=== PATIENT | male | born 1980 | race African-American/Black ===

== ENCOUNTER 2016-09-10 23:42 | Emergency (ER) | payer MEDICAID ==
[~2016-09-10] VITALS: Ht 172.7 cm; Wt 72.0 kg
[~2016-09-10 23:42] MED LIST: BENZ1TAB10 PO; HALO5 PO; LURA40 PO
[2016-09-11 00:09] VITALS: BP 130/82
== END 2016-09-11 00:38 | disposition home or self-care (01) ==
LOC: EMS 23:45
DX: T43.621A Poisoning by amphetamines, accidental (unintentional), initial encounter (principal); F20.9 Schizophrenia, unspecified; F15.90 Other stimulant use, unspecified, uncomplicated; Z02.79 Encounter for issue of other medical certificate; Y92.89 Other specified places as the place of occurrence of the external cause
CPT/HCPCS: 99283

== ENCOUNTER 2017-03-20 14:48 | Inpatient (IN) | payer MEDICAID ==
[2017-03-20] VITALS (7 sets, daily range): BP systolic 114–123; BP diastolic 61–74
[~2017-03-20 14:48] MED LIST changes: -BENZ1TAB10 PO; +ESCI10TA PO; -HALO5 PO; -LURA40 PO; +OLAN5TAB2 PO; +OLAN7.5T2 PO
[2017-03-20] MEDS ORDERED: HALOPERIDOL 5 MG TABLET PO PRN (17:00)
[2017-03-20] MEDS: OLANZapine 7.5 MG TABLET PO SCH (21:19)
[2017-03-21] VITALS (7 sets, daily range): BP systolic 106–122; BP diastolic 58–75
[2017-03-21] MEDS: ESCITALOPRAM OXALATE 10 MG TABLET PO SCH (08:48)
[2017-03-21] MEDS: OLANZapine 5 MG TABLET PO SCH (08:48)
[2017-03-21] MEDS ORDERED: IBUPROFEN 400 MG TABLET PO PRN (19:45)
[2017-03-21] MEDS ORDERED: ACETAMINOPHEN 325 MG TABLET PO PRN (19:45)
[2017-03-21] MEDS: OLANZapine 7.5 MG TABLET PO SCH (20:39)
[2017-03-21] MEDS: ZOLPIDEM TARTRATE 10 MG TABLET PO PRN (21:08)
[2017-03-22 04:55] VITALS: BP 116/62
[2017-03-22 04:59] VITALS: BP 116/62
[2017-03-22 08:00] VITALS: BP 101/64
[2017-03-22 08:14] VITALS: BP 107/64
[2017-03-22] MEDS: LORazepam 2 MG TABLET PO PRN (09:11)
[2017-03-22] MEDS: OLANZapine 5 MG TABLET PO SCH (09:11)
[2017-03-22] MEDS: ESCITALOPRAM OXALATE 10 MG TABLET PO SCH (09:11)
[2017-03-22 12:49] VITALS: BP 127/60
[2017-03-22 16:00] VITALS: BP 114/71
[2017-03-22] MEDS: OLANZapine 7.5 MG TABLET PO SCH (20:46)
[2017-03-23 03:15] VITALS: BP 128/77
[2017-03-23 03:17] VITALS: BP 128/77
[2017-03-23 08:00] VITALS: BP 117/74
[2017-03-23] MEDS: ESCITALOPRAM OXALATE 10 MG TABLET PO SCH (08:45)
[2017-03-23] MEDS: LORazepam 2 MG TABLET PO PRN ×2 (08:45→16:22)
[2017-03-23] MEDS: OLANZapine 5 MG TABLET PO SCH (08:45)
[2017-03-23 16:00] VITALS: BP 125/71
[2017-03-23] MEDS: OLANZapine 7.5 MG TABLET PO SCH (20:46)
[2017-03-23] MEDS: ZOLPIDEM TARTRATE 10 MG TABLET PO PRN (20:46)
[2017-03-24 07:03] VITALS: BP 122/75
[2017-03-24 07:04] VITALS: BP 122/75
[2017-03-24 08:11] VITALS: BP 125/74
[2017-03-24 08:12] VITALS: BP 100/61
[2017-03-24 08:14] VITALS: BP 125/74
[2017-03-24] MEDS: OLANZapine 5 MG TABLET PO SCH (08:53)
[2017-03-24] MEDS: ESCITALOPRAM OXALATE 10 MG TABLET PO SCH (08:53)
[2017-03-24] MEDS: LORazepam 2 MG TABLET PO PRN (08:53)
[2017-03-24] MEDS ORDERED: OLAN10TA22 PO (15:07)
== END 2017-03-24 16:40 | disposition home or self-care (01) | DRG 750 ==
LOC: B3A 16:56 → EDSTATUS 17:10
PROVIDERS: ADMIT Psychiatry & Neurology Psychiatry; ATTEND Psychiatry & Neurology Child & Adolescent Psychiatry
DX: F25.1 Schizoaffective disorder, depressive type (principal); R45.851 Suicidal ideations; F10.10 Alcohol abuse, uncomplicated; F17.200 Nicotine dependence, unspecified, uncomplicated; F41.9 Anxiety disorder, unspecified; Z71.41 Alcohol abuse counseling and surveillance of alcoholic; Z71.6 Tobacco abuse counseling; F19.10 Other psychoactive substance abuse, uncomplicated; Z71.51 Drug abuse counseling and surveillance of drug abuser

== ENCOUNTER 2017-05-04 16:19 | Inpatient (IN) | payer MEDICAID ==
[~2017-05-04] VITALS: Ht 172.7 cm; Wt 78.0 kg
[~2017-05-04 16:19] MED LIST changes: +OLAN10TA22 PO; -OLAN5TAB2 PO
[2017-05-04] MEDS ORDERED: INFLUENZA VIRUS VACCINE QVS 2017-18 (3YR+)/PF 60 MCG/0.5 ML SYRINGE IM ONE (17:00)
[2017-05-04] MEDS: LORazepam 2 MG TABLET PO PRN ×2 (17:20→21:21)
[2017-05-04] MEDS: HALOPERIDOL 5 MG TABLET PO PRN (17:20)
[2017-05-04 17:23] VITALS: BP 119/80
[2017-05-04 17:24] VITALS: BP 148/78
[2017-05-04] MEDS: OLANZapine 7.5 MG TABLET PO SCH (21:05)
[2017-05-04] MEDS: ZOLPIDEM TARTRATE 10 MG TABLET PO PRN (21:05)
[2017-05-05 06:30] VITALS: BP 128/75
[2017-05-05 08:05] VITALS: BP 106/80
[2017-05-05] MEDS: ESCITALOPRAM OXALATE 10 MG TABLET PO SCH (08:42)
[2017-05-05] MEDS: LORazepam 2 MG TABLET PO PRN ×2 (08:44→16:45)
[2017-05-05 16:00] VITALS: BP 114/70
[2017-05-05] MEDS: HALOPERIDOL 5 MG TABLET PO PRN (16:45)
[2017-05-05] MEDS: OLANZapine 7.5 MG TABLET PO SCH (20:23)
[2017-05-06 05:58] VITALS: BP 118/78
[2017-05-06 08:06] VITALS: BP 103/61
[2017-05-06] MEDS: LORazepam 2 MG TABLET PO PRN ×2 (08:25→16:38)
[2017-05-06] MEDS: ESCITALOPRAM OXALATE 10 MG TABLET PO SCH (08:25)
[2017-05-06 16:28] VITALS: BP 110/67
[2017-05-06] MEDS: HALOPERIDOL 5 MG TABLET PO PRN (16:38)
[2017-05-06] MEDS: OLANZapine 7.5 MG TABLET PO SCH (20:23)
[2017-05-07 06:16] VITALS: BP 118/72
[2017-05-07 08:27] VITALS: BP 122/78
[2017-05-07] MEDS: ESCITALOPRAM OXALATE 10 MG TABLET PO SCH (09:03)
[2017-05-07 16:00] VITALS: BP 112/66
[2017-05-07] MEDS: LORazepam 2 MG TABLET PO PRN (17:24)
[2017-05-07] MEDS: OLANZapine 7.5 MG TABLET PO SCH (20:03)
[2017-05-07] MEDS: ZOLPIDEM TARTRATE 10 MG TABLET PO PRN (21:02)
[2017-05-08 01:23] VITALS: BP 119/66
[2017-05-08 08:07] VITALS: BP 108/63
[2017-05-08] MEDS: ESCITALOPRAM OXALATE 10 MG TABLET PO SCH (08:31)
[2017-05-08] MEDS: HALOPERIDOL 5 MG TABLET PO PRN ×2 (08:31→16:24)
[2017-05-08] MEDS: LORazepam 2 MG TABLET PO PRN ×2 (08:31→16:24)
[2017-05-08 16:00] VITALS: BP 120/66
[2017-05-08] MEDS: OLANZapine 7.5 MG TABLET PO SCH (20:21)
[2017-05-09 01:58] VITALS: BP 114/67
[2017-05-09 08:13] VITALS: BP 114/76
[2017-05-09] MEDS: ESCITALOPRAM OXALATE 10 MG TABLET PO SCH (08:16)
[2017-05-09] MEDS: LORazepam 2 MG TABLET PO PRN ×2 (14:19→20:38)
[2017-05-09 16:00] VITALS: BP 125/66
[2017-05-09] MEDS: HALOPERIDOL 5 MG TABLET PO PRN (16:38)
[2017-05-09] MEDS: OLANZapine 7.5 MG TABLET PO SCH (20:38)
[2017-05-10 03:59] VITALS: BP 118/67
[2017-05-10] MEDS: ESCITALOPRAM OXALATE 10 MG TABLET PO SCH (08:05)
[2017-05-10 08:30] VITALS: BP 126/74
[2017-05-10 16:00] VITALS: BP 130/75
[2017-05-10] MEDS: LORazepam 2 MG TABLET PO PRN (16:11)
[2017-05-10] MEDS: HALOPERIDOL 5 MG TABLET PO PRN (16:12)
[2017-05-10] MEDS: OLANZapine 7.5 MG TABLET PO SCH (20:27)
[2017-05-10] MEDS: ZOLPIDEM TARTRATE 10 MG TABLET PO PRN (20:27)
[2017-05-11 03:37] VITALS: BP 126/69
[2017-05-11 08:28] VITALS: BP 119/64
[2017-05-11] MEDS: ESCITALOPRAM OXALATE 10 MG TABLET PO SCH (08:50)
[2017-05-11] MEDS: LORazepam 2 MG TABLET PO PRN (08:50)
[2017-05-11 16:11] VITALS: BP 140/72
== END 2017-05-11 17:40 | disposition home or self-care (01) | DRG 750 ==
LOC: B3A 16:56
PROVIDERS: ADMIT Psychiatry & Neurology Psychiatry; ATTEND Psychiatry & Neurology Psychiatry
DX: F25.0 Schizoaffective disorder, bipolar type (principal); F15.20 Other stimulant dependence, uncomplicated; F41.9 Anxiety disorder, unspecified; F17.200 Nicotine dependence, unspecified, uncomplicated; F10.10 Alcohol abuse, uncomplicated; Z81.8 Family history of other mental and behavioral disorders; Z91.5 Personal history of self-harm
CPT/HCPCS: 87081

== ENCOUNTER 2017-07-17 14:15 | Inpatient (IN) | payer MEDICAID ==
[~2017-07-17] VITALS: Ht 172.7 cm; Wt 75.3 kg
[~2017-07-17 14:15] MED LIST changes: -OLAN10TA22 PO
[2017-07-17 15:40] VITALS: BP 112/54
[2017-07-17 16:30] VITALS: BP 115/68
[2017-07-17] MEDS: LORazepam 2 MG TABLET PO PRN (21:22)
[2017-07-17] MEDS: ZOLPIDEM TARTRATE 10 MG TABLET PO PRN (21:22)
[2017-07-18 05:58] VITALS: BP 117/70
[2017-07-18 08:15] VITALS: BP 120/72
[2017-07-18 08:27] LABS: APPEARANCE,URINE TURBID (CLEAR); BILIRUBIN,URINE NEGATIVE (NEGATIVE); GLUCOSE, URINE (UA) NEGATIVE (NEGATIVE); KETONES,URINE NEGATIVE (NEGATIVE); LEUKOCYTE ESTERASE ,URINE NEGATIVE (NEGATIVE); NITRATE,URINE NEGATIVE (NEGATIVE); OCCULT BLOOD,URINE NEGATIVE (NEGATIVE); PROTEIN,URINE TRACE (NEGATIVE); UROBILINOGEN,URINE 0.2 mg/dL (<=1.0)
[2017-07-18] MEDS: LORazepam 2 MG TABLET PO PRN ×2 (08:28→16:11)
[2017-07-18 08:59] LABS: AMORPHOUS SEDIMENT,UR Many /LPF (None Seen); BACTERIA,URINE None Seen /HPF (None Seen); RBC,URINE None Seen /HPF (0-2); SQUAMOUS EPITHELIAL CELL,UR Few /LPF (None Seen); WBC,URINE None Seen /HPF (0-5)
[2017-07-18] MEDS: HALOPERIDOL 5 MG TABLET PO PRN ×2 (09:40→16:11)
[2017-07-18 16:00] VITALS: BP 114/71
[2017-07-18] MEDS: ZOLPIDEM TARTRATE 10 MG TABLET PO PRN (21:09)
[2017-07-19 01:18] VITALS: BP 122/66
[2017-07-19 08:07] VITALS: BP 128/76
[2017-07-19] MEDS: LORazepam 2 MG TABLET PO PRN ×2 (10:55→16:28)
[2017-07-19 16:07] VITALS: BP 113/69
[2017-07-19] MEDS: HALOPERIDOL 5 MG TABLET PO PRN (16:28)
[2017-07-19] MEDS: ZOLPIDEM TARTRATE 10 MG TABLET PO PRN (20:53)
[2017-07-19] MEDS: OLANZapine 7.5 MG TABLET PO SCH (20:53)
[2017-07-20 06:28] VITALS: BP 104/58
[2017-07-20] MEDS: LORazepam 2 MG TABLET PO PRN ×2 (08:44→17:11)
[2017-07-20 09:48] VITALS: BP 132/79
[2017-07-20 16:00] VITALS: BP 119/68
[2017-07-20] MEDS: HALOPERIDOL 5 MG TABLET PO PRN (17:11)
[2017-07-20] MEDS: ZOLPIDEM TARTRATE 10 MG TABLET PO PRN (20:12)
[2017-07-20] MEDS: OLANZapine 7.5 MG TABLET PO SCH (20:12)
[2017-07-21 06:54] VITALS: BP 101/63
[2017-07-21 08:12] VITALS: BP 128/74
[2017-07-21] MEDS: LORazepam 2 MG TABLET PO PRN ×2 (16:25→21:52)
[2017-07-21] MEDS: HALOPERIDOL 5 MG TABLET PO PRN (16:25)
[2017-07-21 16:30] VITALS: BP 127/82
[2017-07-21] MEDS: OLANZapine 7.5 MG TABLET PO SCH (20:13)
[2017-07-21] MEDS: ZOLPIDEM TARTRATE 10 MG TABLET PO PRN (21:52)
[2017-07-22 06:03] VITALS: BP 128/75
[2017-07-22] MEDS: LORazepam 2 MG TABLET PO PRN ×3 (06:50→16:26)
[2017-07-22 08:12] VITALS: BP 124/73
[2017-07-22] MEDS: HALOPERIDOL 5 MG TABLET PO PRN ×2 (10:50→16:26)
[2017-07-22 16:00] VITALS: BP 118/67
[2017-07-22] MEDS: OLANZapine 7.5 MG TABLET PO SCH (20:52)
[2017-07-23 05:23] VITALS: BP 134/69
[2017-07-23 08:31] VITALS: BP 128/72
[2017-07-23] MEDS: HALOPERIDOL 5 MG TABLET PO PRN ×2 (09:37→16:43)
[2017-07-23] MEDS: LORazepam 2 MG TABLET PO PRN ×2 (09:37→16:44)
[2017-07-23 16:00] VITALS: BP 121/68
[2017-07-23] MEDS: ZOLPIDEM TARTRATE 10 MG TABLET PO PRN (20:33)
[2017-07-23] MEDS: OLANZapine 7.5 MG TABLET PO SCH (20:33)
[2017-07-24 06:53] VITALS: BP 125/78
[2017-07-24 10:08] VITALS: BP 130/79
[2017-07-24] MEDS: HALOPERIDOL 5 MG TABLET PO PRN (16:02)
[2017-07-24] MEDS: LORazepam 2 MG TABLET PO PRN (16:02)
[2017-07-24 16:30] VITALS: BP 118/66
[2017-07-24] MEDS: ZOLPIDEM TARTRATE 10 MG TABLET PO PRN (20:23)
[2017-07-24] MEDS: OLANZapine 7.5 MG TABLET PO SCH (20:23)
[2017-07-25 05:27] VITALS: BP 120/75
[2017-07-25 08:00] VITALS: BP 108/53
[2017-07-25 10:17] VITALS: BP 117/77
[2017-07-25] MEDS: LORazepam 2 MG TABLET PO PRN ×2 (10:17→16:42)
[2017-07-25] MEDS: HALOPERIDOL 5 MG TABLET PO PRN (16:42)
[2017-07-25 16:49] VITALS: BP 124/68
[2017-07-25] MEDS: ZOLPIDEM TARTRATE 10 MG TABLET PO PRN (20:31)
[2017-07-25] MEDS: OLANZapine 7.5 MG TABLET PO SCH (20:31)
[2017-07-26 05:32] VITALS: BP 122/72
[2017-07-26 08:10] VITALS: BP 129/83
[2017-07-26] MEDS: LORazepam 2 MG TABLET PO PRN ×2 (08:30→17:06)
[2017-07-26 16:35] VITALS: BP 130/68
[2017-07-26] MEDS: HALOPERIDOL 5 MG TABLET PO PRN (17:05)
[2017-07-26] MEDS: ZOLPIDEM TARTRATE 10 MG TABLET PO PRN (20:46)
[2017-07-26] MEDS: OLANZapine 7.5 MG TABLET PO SCH (20:46)
[2017-07-27 00:55] VITALS: BP 122/68
[2017-07-27 08:17] VITALS: BP 119/64
[2017-07-27] MEDS: LORazepam 2 MG TABLET PO PRN ×2 (08:30→16:24)
[2017-07-27] MEDS: HALOPERIDOL 5 MG TABLET PO PRN (16:24)
[2017-07-27 17:33] VITALS: BP 131/69
[2017-07-27] MEDS: OLANZapine 7.5 MG TABLET PO SCH (20:36)
[2017-07-28 01:09] VITALS: BP 137/70
== END 2017-07-28 07:38 | disposition home or self-care (01) | DRG 750 ==
LOC: B3A 16:11
PROVIDERS: ADMIT Psychiatry & Neurology Psychiatry; ATTEND Psychiatry & Neurology Psychiatry
DX: F25.9 Schizoaffective disorder, unspecified (principal); R45.851 Suicidal ideations; F10.10 Alcohol abuse, uncomplicated; F17.200 Nicotine dependence, unspecified, uncomplicated; F19.10 Other psychoactive substance abuse, uncomplicated; Z71.6 Tobacco abuse counseling; Z71.41 Alcohol abuse counseling and surveillance of alcoholic

== ENCOUNTER 2017-09-30 12:07 | Inpatient (IN) | payer MEDICAID ==
[~2017-09-30] VITALS: Ht 172.7 cm; Wt 73.9 kg
[~2017-09-30 12:07] MED LIST changes: -ESCI10TA PO
[2017-09-30 12:16] VITALS: BP 123/59
[2017-09-30] MEDS ORDERED: LORazepam 2 MG TABLET PO PRN (12:30)
[2017-09-30] MEDS ORDERED: INFLUENZA VIRUS VACCINE QVS 2017-18 (3YR+)/PF 60 MCG/0.5 ML SYRINGE IM ONE (12:30)
[2017-09-30] MEDS ORDERED: HALOPERIDOL 5 MG TABLET PO PRN ×2 (12:30→13:15)
[2017-09-30] MEDS ORDERED: ZOLPIDEM TARTRATE 10 MG TABLET PO PRN ×2 (12:30→13:15)
[2017-09-30 13:00] VITALS: BP 124/84
[2017-09-30 16:02] VITALS: BP 110/67
[2017-09-30] MEDS ORDERED: OLANZapine 10 MG TABLET PO SCH (21:00)
[2017-09-30] MEDS: OLANZapine 7.5 MG TABLET PO SCH (21:04)
[2017-09-30] MEDS: LORazepam 2 MG TABLET PO PRN (21:04)
[2017-10-01 06:31] VITALS: BP 114/67
[2017-10-01 08:02] VITALS: BP 112/68
[2017-10-01] MEDS: LORazepam 2 MG TABLET PO PRN ×2 (08:51→17:00)
[2017-10-01] MEDS: ESCITALOPRAM OXALATE 20 MG TABLET PO SCH (08:51)
[2017-10-01] MEDS ORDERED: IBUPROFEN 400 MG TABLET PO PRN (10:00)
[2017-10-01] MEDS ORDERED: ACETAMINOPHEN 325 MG TABLET PO PRN (10:00)
[2017-10-01 16:01] VITALS: BP 129/66
[2017-10-01] MEDS: OLANZapine 7.5 MG TABLET PO SCH (20:18)
[2017-10-02 05:44] VITALS: BP 118/67
[2017-10-02 08:00] VITALS: BP 110/64
[2017-10-02] MEDS: ESCITALOPRAM OXALATE 20 MG TABLET PO SCH (09:38)
[2017-10-02] MEDS: OLANZapine 7.5 MG TABLET PO SCH (20:26)
[2017-10-03] MEDS: ESCITALOPRAM OXALATE 20 MG TABLET PO SCH (09:40)
[2017-10-03 16:14] VITALS: BP 114/70
[2017-10-03] MEDS: OLANZapine 7.5 MG TABLET PO SCH (20:29)
[2017-10-04 04:00] VITALS: BP 111/80
[2017-10-04 08:03] VITALS: BP 114/76
[2017-10-04] MEDS: ESCITALOPRAM OXALATE 20 MG TABLET PO SCH (08:12)
[2017-10-04 16:03] VITALS: BP 111/66
[2017-10-04] MEDS: LORazepam 2 MG TABLET PO PRN (16:41)
[2017-10-04] MEDS: OLANZapine 7.5 MG TABLET PO SCH (20:53)
[2017-10-05 00:36] VITALS: BP 134/86
[2017-10-05] MEDS: LORazepam 2 MG TABLET PO PRN ×2 (09:03→17:05)
[2017-10-05] MEDS: ESCITALOPRAM OXALATE 20 MG TABLET PO SCH (09:03)
[2017-10-05 16:18] VITALS: BP 116/68
[2017-10-05] MEDS: OLANZapine 7.5 MG TABLET PO SCH (20:23)
[2017-10-06 02:26] VITALS: BP 120/69
[2017-10-06] MEDS: ESCITALOPRAM OXALATE 20 MG TABLET PO SCH (08:02)
[2017-10-06 09:26] VITALS: BP 119/67
[2017-10-06] MEDS ORDERED: ESCI20TA PO (13:12)
== END 2017-10-06 16:31 | disposition home or self-care (01) | DRG 750 ==
LOC: B3A 12:25
PROVIDERS: ADMIT Psychiatry & Neurology Psychiatry; ATTEND Psychiatry & Neurology Psychiatry
PROC: 3E0234Z Introduction of Serum, Toxoid and Vaccine into Muscle, Percutaneous Approach (ICD-10-PCS; principal; 2017-09-30)
DX: F25.0 Schizoaffective disorder, bipolar type (principal); R45.851 Suicidal ideations; F41.9 Anxiety disorder, unspecified; F10.10 Alcohol abuse, uncomplicated; F19.20 Other psychoactive substance dependence, uncomplicated; F17.200 Nicotine dependence, unspecified, uncomplicated; Z81.8 Family history of other mental and behavioral disorders; Z91.5 Personal history of self-harm; Z23 Encounter for immunization; Z71.41 Alcohol abuse counseling and surveillance of alcoholic; Z71.6 Tobacco abuse counseling; Z71.51 Drug abuse counseling and surveillance of drug abuser
CPT/HCPCS: 90471

== ENCOUNTER 2018-09-13 17:05 | Inpatient (IN) | payer MEDICAID ==
[~2018-09-13] VITALS: Ht 172.7 cm; Wt 105.4 kg
[~2018-09-13 17:05] MED LIST changes: +ESCI20TA PO
[2018-09-13 19:28] LABS: BASOPHILS % (AUTO) 0.5 % (0.0-2.0); EOSINOPHILS % (AUTO) 0.2 % (1.0-6.0); HEMATOCRIT 47.2 % (41-53); HEMOGLOBIN 16.1 g/dL (13.5-17.5); LYMPHOCYTES # (AUTO) 1.4 K/uL (1.0-4.8); LYMPHOCYTES % (AUTO) 18.7 % (22.0-44.0); MEAN CORPUSCULAR VOLUME 85 fL (80-100); MONOCYTES # (AUTO) 0.7 K/uL (0.1-1.0); MONOCYTES % (AUTO) 8.9 % (2.0-9.0); NEUTROPHILS # (AUTO) 5.4 K/uL (1.8-7.7); NEUTROPHILS % (AUTO) 71.7 % (40.0-70.0); PLATELET COUNT (AUTO) 389 K/uL (150-450); RED BLOOD CELL COUNT(AUTO) 5.54 MIL/uL (4.50-5.90); RED CELL DISTRIBUTION WIDTH 14.2 % (11.5-14.5)
[2018-09-13] MEDS ORDERED: LORazepam 2 MG/ML VIAL IM ONE (19:30)
[2018-09-13] MEDS ORDERED: HALOPERIDOL LACTATE 5 MG/ML VIAL IM ONE (19:30)
[2018-09-13 19:32] LABS: ANION GAP 13 mmol/L (8-16); CALCIUM, TOTAL 9.4 mg/dL (8.8-10.5); CARBON DIOXIDE 26 mmol/L (22-29); CHLORIDE 100 mmol/L (98-107); CREATININE 1.26 mg/dL (0.60-1.30); GLOMERULAR FILTR. RATE CALC > 60 mL/min (>60); GLUCOSE,RANDOM 88 mg/dL (70-110); POTASSIUM 3.6 mmol/L (3.5-5.1); SODIUM SERUM 139 mmol/L (136-145); UREA NITROGEN, BLOOD 22 mg/dL (7-18)
[2018-09-13 19:40] LABS: ALANINE AMINOTRANSFERASE 89 U/L (12-78); ALKALINE PHOSPHATASE 88 U/L (46-116); ASPARTATE AMINOTRANSFERASE 96 U/L (15-37); BILIRUBIN,TOTAL 0.7 mg/dL (0.1-1.0); TOTAL PROTEIN, SERUM 8.3 g/dL (6.4-8.2)
[2018-09-13] MEDS ORDERED: OLANZapine 5 MG TABLET PO ONE (19:45)
[2018-09-13] MEDS ORDERED: LORazepam 1 MG TABLET PO ONE (19:45)
[2018-09-13] MEDS ORDERED: DiphenhydrAMINE HCL 25 MG CAPSULE PO ONE (19:45)
[2018-09-13 20:04] LABS: APPEARANCE,URINE CLOUDY (CLEAR); BILIRUBIN,URINE PRELIM. POSITIVE (NEGATIVE); GLUCOSE, URINE (UA) NEGATIVE (NEGATIVE); KETONES,URINE >=80 mg/dL (NEGATIVE); LEUKOCYTE ESTERASE ,URINE SMALL (NEGATIVE); NITRATE,URINE NEGATIVE (NEGATIVE); OCCULT BLOOD,URINE NEGATIVE (NEGATIVE); PH,URINE 5.5 (5.0-8.0); PROTEIN,URINE POS 1+ (NEGATIVE)
[2018-09-13 20:10] LABS: BACTERIA,URINE Few /HPF (None Seen); SQUAMOUS EPITHELIAL CELL,UR Moderate /LPF (None Seen)
[2018-09-13 20:17] LABS: AMPHET/METH SCREEN,URINE POSITIVE (NEGATIVE); BARBITURATE SCREEN, URINE NEGATIVE (NEGATIVE); BENZODIAZEPINES SCREEN,URINE NEGATIVE (NEGATIVE); CANNABINOID SCREEN,URINE POSITIVE (NEGATIVE); COCAINE SCREEN,URINE NEGATIVE (NEGATIVE); METHADONE SCREEN, URINE NEGATIVE (NEGATIVE); OPIATE SCREEN,URINE NEGATIVE (NEGATIVE)
[2018-09-13 20:19] LABS: PHENCYCLIDINE SCREEN,URINE NEGATIVE (NEGATIVE)
[2018-09-13] MEDS ORDERED: LORazepam 2 MG TABLET PO PRN (20:30)
[2018-09-13] MEDS ORDERED: OLANZapine 5 MG RAPDIS TABLET PO PRN (20:30)
[2018-09-13] MEDS ORDERED: ZOLPIDEM TARTRATE 10 MG TABLET PO PRN (20:30)
[2018-09-14 01:41] VITALS: BP 122/78
[2018-09-14] MEDS ORDERED: DOCUSATE SODIUM 100 MG CAPSULE PO PRN (06:45)
[2018-09-14] MEDS ORDERED: PETROLATUM,WHITE 71 GM JELLY TP PRN (06:45)
[2018-09-14] MEDS ORDERED: MAGNESIUM HYDROXIDE SUSPENSION 30 ML UDCUP PO PRN (06:45)
[2018-09-14] MEDS ORDERED: ONDANSETRON HCL 4 MG TABLET PO PRN (06:45)
[2018-09-14] MEDS ORDERED: NICOTINE 14 MG/24 HOUR PATCH TD PRN (06:45)
[2018-09-14] MEDS ORDERED: ALBUTEROL SULFATE HFA 90 MCG/PUFF 8 GM INHALER IH PRN (06:45)
[2018-09-14] MEDS ORDERED: LOPERAMIDE HCL 2 MG CAPSULE PO PRN (06:45)
[2018-09-14] MEDS ORDERED: MAG HYDROX/AL HYDROX/SIMETH ES 30 ML SUSPENSION UDCUP PO PRN (06:45)
[2018-09-14] MEDS ORDERED: GuaiFENesin/D-METHORPHAN [SUGAR-FREE] 200-20MG/10 ML SYRUP UDCUP PO PRN (06:45)
[2018-09-14] MEDS ORDERED: CloNIDine HCL 0.1 MG TABLET PO PRN (06:45)
[2018-09-14] MEDS ORDERED: IBUPROFEN 400 MG TABLET PO PRN (06:45)
[2018-09-14] MEDS ORDERED: ACETAMINOPHEN 325 MG TABLET PO PRN (06:45)
[2018-09-14 08:29] VITALS: BP 106/68
[2018-09-14 20:41] VITALS: BP 116/74
[2018-09-14] MEDS: OLANZapine 7.5 MG TABLET PO SCH (21:26)
[2018-09-15 08:24] VITALS: BP 106/55
[2018-09-15 18:43] VITALS: BP 111/62
[2018-09-15] MEDS: OLANZapine 7.5 MG TABLET PO SCH (20:29)
[2018-09-16] MEDS: CEPHALEXIN MONOHYDRATE 500 MG CAPSULE PO SCH ×3 (00:13→17:19)
[2018-09-16 16:00] VITALS: BP 121/59
[2018-09-16] MEDS: OLANZapine 7.5 MG TABLET PO SCH (21:45)
[2018-09-17] MEDS: CEPHALEXIN MONOHYDRATE 500 MG CAPSULE PO SCH ×3 (00:15→16:26)
[2018-09-17 08:10] VITALS: BP 107/74
[2018-09-17 17:27] VITALS: BP 130/88
[2018-09-17] MEDS: OLANZapine 7.5 MG TABLET PO SCH (20:14)
[2018-09-18 08:05] VITALS: BP 124/76
[2018-09-18] MEDS: CEPHALEXIN MONOHYDRATE 500 MG CAPSULE PO SCH ×3 (09:43→16:08)
[2018-09-18 16:29] VITALS: BP 137/75
[2018-09-18] MEDS: OLANZapine 7.5 MG TABLET PO SCH (20:56)
[2018-09-19] MEDS: CEPHALEXIN MONOHYDRATE 500 MG CAPSULE PO SCH ×3 (01:02→16:20)
[2018-09-19 08:00] VITALS: BP 131/64
[2018-09-19] MEDS ORDERED: CEPH500 PO (13:47)
== END 2018-09-19 16:45 | disposition home or self-care (01) | DRG 750 ==
LOC: EMS 17:06 → 3EC 09-14 00:01
DX: F25.1 Schizoaffective disorder, depressive type (principal); R45.851 Suicidal ideations; F15.20 Other stimulant dependence, uncomplicated; F10.10 Alcohol abuse, uncomplicated; F12.20 Cannabis dependence, uncomplicated; F17.210 Nicotine dependence, cigarettes, uncomplicated; R74.0 Nonspecific elevation of levels of transaminase and lactic acid dehydrogenase [LDH]; N39.0 Urinary tract infection, site not specified; F32.9 Major depressive disorder, single episode, unspecified; Z71.41 Alcohol abuse counseling and surveillance of alcoholic; Z71.51 Drug abuse counseling and surveillance of drug abuser; Z79.899 Other long term (current) drug therapy
CPT/HCPCS: 87086; G0480

== ENCOUNTER 2018-11-02 15:35 | Inpatient (IN) | payer MEDICAID ==
[~2018-11-02] VITALS: Ht 172.7 cm; Wt 95.9 kg
[~2018-11-02 15:35] MED LIST changes: +CEPH500 PO; -ESCI20TA PO
[2018-11-02] MEDS ORDERED: HALOPERIDOL 5 MG TABLET PO PRN (17:45)
[2018-11-02] MEDS ORDERED: ZOLPIDEM TARTRATE 10 MG TABLET PO PRN (17:45)
[2018-11-02 18:04] VITALS: BP 144/77
[2018-11-02 18:56] VITALS: BP 115/67
[2018-11-02] MEDS ORDERED: CloNIDine HCL 0.1 MG TABLET PO PRN (23:00)
[2018-11-02] MEDS ORDERED: PETROLATUM,WHITE 28 GM JELLY TP PRN (23:00)
[2018-11-02] MEDS ORDERED: BENZOCAINE/MENTHOL LOZENGE MM PRN (23:00)
[2018-11-02] MEDS ORDERED: IBUPROFEN 600 MG TABLET PO PRN (23:00)
[2018-11-02] MEDS ORDERED: ACETAMINOPHEN 325 MG TABLET PO PRN (23:00)
[2018-11-02] MEDS ORDERED: LOPERAMIDE HCL 2 MG CAPSULE PO PRN (23:00)
[2018-11-02] MEDS ORDERED: MAGNESIUM HYDROXIDE SUSPENSION 30 ML UDCUP PO PRN (23:00)
[2018-11-02] MEDS ORDERED: ALBUTEROL SULFATE HFA 90 MCG/PUFF 8 GM INHALER IH PRN (23:00)
[2018-11-02] MEDS ORDERED: ONDANSETRON HCL 4 MG TABLET PO PRN (23:00)
[2018-11-02] MEDS ORDERED: BACITRACIN 28.4 GM OINTMENT TP PRN (23:00)
[2018-11-02] MEDS ORDERED: MAG HYDROX/AL HYDROX/SIMETH ES 30 ML SUSPENSION UDCUP PO PRN (23:00)
[2018-11-03 08:13] VITALS: BP 101/59
[2018-11-03] MEDS: OMEPRAZOLE 20 MG CAPSULE PO SCH (09:59)
[2018-11-03] MEDS: DOCUSATE SODIUM 100 MG CAPSULE PO SCH (09:59)
[2018-11-03 16:03] VITALS: BP 101/60
[2018-11-03] MEDS: LORazepam 2 MG TABLET PO PRN (17:47)
[2018-11-03] MEDS: OLANZapine 7.5 MG TABLET PO SCH (21:44)
[2018-11-04 07:43] LABS: APPEARANCE,URINE TURBID (CLEAR); BILIRUBIN,URINE NEGATIVE (NEGATIVE); GLUCOSE, URINE (UA) NEGATIVE (NEGATIVE); KETONES,URINE NEGATIVE (NEGATIVE); LEUKOCYTE ESTERASE ,URINE LARGE (NEGATIVE); NITRATE,URINE NEGATIVE (NEGATIVE); OCCULT BLOOD,URINE TRACE (NEGATIVE); PROTEIN,URINE POS 1+ (NEGATIVE)
[2018-11-04 07:44] LABS: AMPHET/METH SCREEN,URINE POSITIVE (NEGATIVE); BARBITURATE SCREEN, URINE NEGATIVE (NEGATIVE); BENZODIAZEPINES SCREEN,URINE NEGATIVE (NEGATIVE); CANNABINOID SCREEN,URINE POSITIVE (NEGATIVE); COCAINE SCREEN,URINE NEGATIVE (NEGATIVE); METHADONE SCREEN, URINE NEGATIVE (NEGATIVE); OPIATE SCREEN,URINE NEGATIVE (NEGATIVE); PHENCYCLIDINE SCREEN,URINE NEGATIVE (NEGATIVE)
[2018-11-04] MEDS: DOCUSATE SODIUM 100 MG CAPSULE PO SCH (08:08)
[2018-11-04] MEDS: OMEPRAZOLE 20 MG CAPSULE PO SCH (08:08)
[2018-11-04 09:16] LABS: BACTERIA,URINE Few /HPF (None Seen); RENAL EPITHELIAL CELLS,URINE Rare /LPF (None Seen); SQUAMOUS EPITHELIAL CELL,UR Moderate /LPF (None Seen); WBC,URINE 26-50 /HPF (0-5)
[2018-11-04 16:16] VITALS: BP 100/59
[2018-11-04] MEDS: OLANZapine 7.5 MG TABLET PO SCH (20:19)
[2018-11-05 06:10] VITALS: BP 112/65
[2018-11-05] MEDS: OMEPRAZOLE 20 MG CAPSULE PO SCH (08:46)
[2018-11-05] MEDS: DOCUSATE SODIUM 100 MG CAPSULE PO SCH (08:46)
[2018-11-05 16:22] VITALS: BP 110/52
[2018-11-05] MEDS: OLANZapine 7.5 MG TABLET PO SCH (20:52)
[2018-11-06 03:59] VITALS: BP 114/64
[2018-11-06] MEDS: OMEPRAZOLE 20 MG CAPSULE PO SCH (09:42)
[2018-11-06] MEDS: DOCUSATE SODIUM 100 MG CAPSULE PO SCH (09:42)
[2018-11-06 17:13] VITALS: BP 137/74
[2018-11-06] MEDS: OLANZapine 7.5 MG TABLET PO SCH (20:37)
[2018-11-07 04:29] VITALS: BP 128/82
[2018-11-07 08:34] VITALS: BP 135/78
[2018-11-07] MEDS: DOCUSATE SODIUM 100 MG CAPSULE PO SCH (08:36)
[2018-11-07] MEDS: OMEPRAZOLE 20 MG CAPSULE PO SCH (08:36)
[2018-11-07] MEDS: CIPROFLOXACIN HCL 250 MG TABLET PO SCH ×2 (08:39→15:44)
[2018-11-07] MEDS: LORazepam 2 MG TABLET PO PRN (15:44)
[2018-11-07 16:00] VITALS: BP 117/74
[2018-11-07] MEDS: OLANZapine 7.5 MG TABLET PO SCH (20:18)
[2018-11-08 01:09] VITALS: BP 122/70
[2018-11-08 08:14] VITALS: BP 112/73
[2018-11-08] MEDS: DOCUSATE SODIUM 100 MG CAPSULE PO SCH (08:16)
[2018-11-08] MEDS: OMEPRAZOLE 20 MG CAPSULE PO SCH (08:16)
[2018-11-08] MEDS: CIPROFLOXACIN HCL 250 MG TABLET PO SCH ×2 (08:16→16:03)
[2018-11-08] MEDS: LORazepam 2 MG TABLET PO PRN ×2 (11:40→16:03)
[2018-11-08 16:15] VITALS: BP 126/71
[2018-11-08] MEDS: OLANZapine 7.5 MG TABLET PO SCH (20:02)
[2018-11-09 06:46] VITALS: BP 124/72
[2018-11-09 07:56] VITALS: BP 102/65
[2018-11-09] MEDS: DOCUSATE SODIUM 100 MG CAPSULE PO SCH (08:45)
[2018-11-09] MEDS: CIPROFLOXACIN HCL 250 MG TABLET PO SCH (08:45)
[2018-11-09] MEDS: OMEPRAZOLE 20 MG CAPSULE PO SCH (08:45)
[2018-11-09] MEDS: LORazepam 2 MG TABLET PO PRN (08:51)
[2018-11-09] MEDS ORDERED: CIP250 PO (14:26)
== END 2018-11-09 15:35 | disposition home or self-care (01) | DRG 750 ==
LOC: B3A 18:13
PROVIDERS: ADMIT Psychiatry & Neurology Psychiatry; ATTEND Psychiatry & Neurology Psychiatry
DX: F20.0 Paranoid schizophrenia (principal); R45.851 Suicidal ideations; F41.9 Anxiety disorder, unspecified; N39.0 Urinary tract infection, site not specified; G47.00 Insomnia, unspecified; K59.00 Constipation, unspecified; Z79.899 Other long term (current) drug therapy
CPT/HCPCS: 80307; 87086

== ENCOUNTER 2018-12-22 20:54 | Inpatient (IN) | payer MEDICAID ==
[~2018-12-22] VITALS: Ht 172.7 cm; Wt 88.9 kg
[~2018-12-22 20:54] MED LIST changes: -CEPH500 PO; +CIP250 PO
[2018-12-22 22:04] VITALS: BP 132/86
[2018-12-22 22:19] VITALS: BP 139/73
[2018-12-22] MEDS ORDERED: MAG HYDROX/AL HYDROX/SIMETH ES 30 ML SUSPENSION UDCUP PO PRN (22:30)
[2018-12-22] MEDS ORDERED: ONDANSETRON HCL 4 MG TABLET PO PRN (22:30)
[2018-12-22] MEDS ORDERED: ALBUTEROL SULFATE HFA 90 MCG/PUFF 8 GM INHALER IH PRN (22:30)
[2018-12-22] MEDS ORDERED: PETROLATUM,WHITE 28 GM JELLY TP PRN (22:30)
[2018-12-22] MEDS ORDERED: ACETAMINOPHEN 325 MG TABLET PO PRN (22:30)
[2018-12-22] MEDS ORDERED: IBUPROFEN 600 MG TABLET PO PRN (22:30)
[2018-12-22] MEDS ORDERED: MAGNESIUM HYDROXIDE SUSPENSION 30 ML UDCUP PO PRN (22:30)
[2018-12-22] MEDS ORDERED: BACITRACIN 28.4 GM OINTMENT TP PRN (22:30)
[2018-12-22] MEDS ORDERED: BENZOCAINE/MENTHOL LOZENGE MM PRN (22:30)
[2018-12-22] MEDS ORDERED: CloNIDine HCL 0.1 MG TABLET PO PRN (22:30)
[2018-12-22] MEDS ORDERED: LOPERAMIDE HCL 2 MG CAPSULE PO PRN (22:30)
[2018-12-23] MEDS: OMEPRAZOLE 20 MG CAPSULE PO SCH (08:06)
[2018-12-23] MEDS: DOCUSATE SODIUM 100 MG CAPSULE PO SCH (08:06)
[2018-12-23 08:10] VITALS: BP 131/83
[2018-12-23] MEDS: LORazepam 2 MG TABLET PO PRN ×2 (09:47→17:05)
[2018-12-23 16:02] VITALS: BP 124/69
[2018-12-23] MEDS: HALOPERIDOL 5 MG TABLET PO PRN (17:06)
[2018-12-23] MEDS: ZOLPIDEM TARTRATE 10 MG TABLET PO PRN (20:28)
[2018-12-23] MEDS: OLANZapine 7.5 MG TABLET PO SCH (20:28)
[2018-12-24 08:10] VITALS: BP 105/65
[2018-12-24] MEDS: ESCITALOPRAM OXALATE 20 MG TABLET PO SCH (08:13)
[2018-12-24] MEDS: OMEPRAZOLE 20 MG CAPSULE PO SCH (08:13)
[2018-12-24] MEDS: DOCUSATE SODIUM 100 MG CAPSULE PO SCH (08:13)
[2018-12-24 16:07] VITALS: BP 128/74
[2018-12-24] MEDS: OLANZapine 7.5 MG TABLET PO SCH (20:45)
[2018-12-25 06:17] VITALS: BP 117/67
[2018-12-25] MEDS: OMEPRAZOLE 20 MG CAPSULE PO SCH (08:15)
[2018-12-25] MEDS: DOCUSATE SODIUM 100 MG CAPSULE PO SCH (08:15)
[2018-12-25] MEDS: ESCITALOPRAM OXALATE 20 MG TABLET PO SCH (08:16)
[2018-12-25 16:05] VITALS: BP 112/64
[2018-12-25] MEDS: OLANZapine 7.5 MG TABLET PO SCH (19:58)
[2018-12-26] MEDS: OMEPRAZOLE 20 MG CAPSULE PO SCH (09:13)
[2018-12-26] MEDS: HALOPERIDOL 5 MG TABLET PO PRN ×2 (09:13→16:53)
[2018-12-26] MEDS: DOCUSATE SODIUM 100 MG CAPSULE PO SCH (09:13)
[2018-12-26] MEDS: ESCITALOPRAM OXALATE 20 MG TABLET PO SCH (09:13)
[2018-12-26 16:00] VITALS: BP 127/70
[2018-12-26] MEDS: LORazepam 2 MG TABLET PO PRN (16:53)
[2018-12-26] MEDS: OLANZapine 10 MG TABLET PO SCH (20:45)
[2018-12-26] MEDS: ZOLPIDEM TARTRATE 10 MG TABLET PO PRN (20:45)
[2018-12-27 08:25] VITALS: BP 114/64
[2018-12-27] MEDS: ESCITALOPRAM OXALATE 20 MG TABLET PO SCH (09:28)
[2018-12-27] MEDS: OMEPRAZOLE 20 MG CAPSULE PO SCH (09:28)
[2018-12-27] MEDS: DOCUSATE SODIUM 100 MG CAPSULE PO SCH (09:28)
[2018-12-27 16:09] VITALS: BP 120/67
[2018-12-27] MEDS: LORazepam 2 MG TABLET PO PRN (16:20)
[2018-12-27] MEDS: HALOPERIDOL 5 MG TABLET PO PRN (16:20)
[2018-12-27] MEDS: OLANZapine 10 MG TABLET PO SCH (20:47)
[2018-12-27] MEDS: ZOLPIDEM TARTRATE 10 MG TABLET PO PRN (20:47)
[2018-12-28 01:58] VITALS: BP 117/67
[2018-12-28] MEDS: OMEPRAZOLE 20 MG CAPSULE PO SCH (09:06)
[2018-12-28] MEDS: DOCUSATE SODIUM 100 MG CAPSULE PO SCH (09:06)
[2018-12-28] MEDS: ESCITALOPRAM OXALATE 20 MG TABLET PO SCH (09:06)
[2018-12-28 16:06] VITALS: BP 130/65
[2018-12-28] MEDS: HALOPERIDOL 5 MG TABLET PO PRN (16:27)
[2018-12-28] MEDS: LORazepam 2 MG TABLET PO PRN (16:27)
[2018-12-28] MEDS: OLANZapine 10 MG TABLET PO SCH (20:28)
[2018-12-29 00:40] VITALS: BP 121/68
[2018-12-29 08:17] VITALS: BP 123/63
[2018-12-29] MEDS: ESCITALOPRAM OXALATE 20 MG TABLET PO SCH (08:39)
[2018-12-29] MEDS: OMEPRAZOLE 20 MG CAPSULE PO SCH (08:39)
[2018-12-29] MEDS: DOCUSATE SODIUM 100 MG CAPSULE PO SCH (08:39)
[2018-12-29] MEDS: LORazepam 2 MG TABLET PO PRN (14:38)
[2018-12-29 16:59] VITALS: BP 134/83
[2018-12-29] MEDS: OLANZapine 10 MG TABLET PO SCH (20:12)
[2018-12-30 02:43] VITALS: BP 110/61
[2018-12-30] MEDS ORDERED: ESCI20TA PO (07:47)
[2018-12-30] MEDS ORDERED: OLAN10TA3 PO (07:47)
[2018-12-30 08:26] VITALS: BP 130/71
[2018-12-30] MEDS: DOCUSATE SODIUM 100 MG CAPSULE PO SCH (08:40)
[2018-12-30] MEDS: OMEPRAZOLE 20 MG CAPSULE PO SCH (08:40)
[2018-12-30] MEDS: ESCITALOPRAM OXALATE 20 MG TABLET PO SCH (08:40)
== END 2018-12-30 13:30 | disposition home or self-care (01) | DRG 750 ==
LOC: B3A 21:36
PROVIDERS: ADMIT Psychiatry & Neurology Psychiatry; ATTEND Psychiatry & Neurology Psychiatry
DX: F25.0 Schizoaffective disorder, bipolar type (principal); F41.9 Anxiety disorder, unspecified; G47.00 Insomnia, unspecified; K59.00 Constipation, unspecified; Z91.5 Personal history of self-harm; Z81.8 Family history of other mental and behavioral disorders

== ENCOUNTER 2019-01-30 08:06 | Inpatient (IN) | payer MEDICAID ==
[~2019-01-30] VITALS: Ht 162.6 cm; Wt 88.5 kg
[~2019-01-30 08:06] MED LIST changes: -CIP250 PO; +ESCI20TA PO; +OLAN10TA3 PO; -OLAN7.5T2 PO
[2019-01-30 09:38] VITALS: BP 140/92
[2019-01-30 10:15] VITALS: BP 138/87
[2019-01-30] MEDS ORDERED: LOPERAMIDE HCL 2 MG CAPSULE PO PRN (11:00)
[2019-01-30] MEDS ORDERED: ONDANSETRON HCL 4 MG TABLET PO PRN (11:00)
[2019-01-30] MEDS ORDERED: CloNIDine HCL 0.1 MG TABLET PO PRN (11:00)
[2019-01-30] MEDS ORDERED: MAG HYDROX/AL HYDROX/SIMETH ES 30 ML SUSPENSION UDCUP PO PRN (11:00)
[2019-01-30] MEDS ORDERED: DOCUSATE SODIUM 100 MG CAPSULE PO PRN (11:00)
[2019-01-30] MEDS ORDERED: ACETAMINOPHEN 325 MG TABLET PO PRN (11:00)
[2019-01-30] MEDS ORDERED: NICOTINE 14 MG/24 HOUR PATCH TD PRN (11:00)
[2019-01-30] MEDS ORDERED: ALBUTEROL SULFATE HFA 90 MCG/PUFF 8 GM INHALER IH PRN (11:00)
[2019-01-30] MEDS ORDERED: GuaiFENesin/D-METHORPHAN [SUGAR-FREE] 200-20MG/10 ML SYRUP UDCUP PO PRN (11:00)
[2019-01-30] MEDS ORDERED: IBUPROFEN 400 MG TABLET PO PRN (11:00)
[2019-01-30] MEDS ORDERED: PETROLATUM,WHITE 28 GM JELLY TP PRN (11:00)
[2019-01-30] MEDS ORDERED: MAGNESIUM HYDROXIDE SUSPENSION 30 ML UDCUP PO PRN (11:00)
[2019-01-30 16:00] VITALS: BP 109/66
[2019-01-30] MEDS: LORazepam 2 MG TABLET PO PRN (17:14)
[2019-01-30] MEDS: ZOLPIDEM TARTRATE 10 MG TABLET PO PRN (20:36)
[2019-01-30] MEDS: OLANZapine 10 MG TABLET PO SCH (20:36)
[2019-01-31 06:50] VITALS: BP 109/59
[2019-01-31] MEDS: ESCITALOPRAM OXALATE 20 MG TABLET PO SCH (08:17)
[2019-01-31] MEDS: LORazepam 2 MG TABLET PO PRN ×2 (11:35→16:49)
[2019-01-31 19:06] VITALS: BP 107/60
[2019-01-31] MEDS: OLANZapine 10 MG TABLET PO SCH (20:23)
[2019-01-31] MEDS: ZOLPIDEM TARTRATE 10 MG TABLET PO PRN (20:23)
[2019-02-01 01:43] VITALS: BP 110/71
[2019-02-01] MEDS: ESCITALOPRAM OXALATE 20 MG TABLET PO SCH (08:01)
[2019-02-01 08:54] LABS: AMPHET/METH SCREEN,URINE POSITIVE (NEGATIVE); BARBITURATE SCREEN, URINE NEGATIVE (NEGATIVE); BENZODIAZEPINES SCREEN,URINE NEGATIVE (NEGATIVE); CANNABINOID SCREEN,URINE POSITIVE (NEGATIVE); COCAINE SCREEN,URINE NEGATIVE (NEGATIVE); METHADONE SCREEN, URINE NEGATIVE (NEGATIVE); OPIATE SCREEN,URINE NEGATIVE (NEGATIVE)
[2019-02-01 08:55] LABS: PHENCYCLIDINE SCREEN,URINE NEGATIVE (NEGATIVE)
[2019-02-01 09:24] VITALS: BP 102/61
[2019-02-01 16:00] VITALS: BP 119/69
[2019-02-01] MEDS: LORazepam 2 MG TABLET PO PRN (18:59)
[2019-02-01] MEDS: OLANZapine 10 MG TABLET PO SCH (20:47)
[2019-02-01] MEDS: ZOLPIDEM TARTRATE 10 MG TABLET PO PRN (20:47)
[2019-02-02 05:28] VITALS: BP 121/72
[2019-02-02] MEDS: ESCITALOPRAM OXALATE 20 MG TABLET PO SCH (08:29)
[2019-02-02 16:05] VITALS: BP 129/81
[2019-02-02] MEDS: LORazepam 2 MG TABLET PO PRN (16:37)
[2019-02-02] MEDS: OLANZapine 10 MG TABLET PO SCH (20:13)
[2019-02-02] MEDS: ZOLPIDEM TARTRATE 10 MG TABLET PO PRN (20:13)
[2019-02-03 02:24] VITALS: BP 122/78
[2019-02-03] MEDS: ESCITALOPRAM OXALATE 20 MG TABLET PO SCH (08:09)
[2019-02-03] MEDS: LORazepam 2 MG TABLET PO PRN ×2 (11:47→16:26)
[2019-02-03] MEDS: HALOPERIDOL 5 MG TABLET PO PRN (16:26)
[2019-02-03 16:40] VITALS: BP 135/75
[2019-02-03] MEDS: OLANZapine 10 MG TABLET PO SCH (20:29)
[2019-02-03] MEDS: ZOLPIDEM TARTRATE 10 MG TABLET PO PRN (20:29)
[2019-02-04 05:45] VITALS: BP 130/72
[2019-02-04] MEDS: ESCITALOPRAM OXALATE 20 MG TABLET PO SCH (08:01)
[2019-02-04 08:05] VITALS: BP 137/89
[2019-02-04] MEDS: LORazepam 2 MG TABLET PO PRN (16:10)
[2019-02-04] MEDS: HALOPERIDOL 5 MG TABLET PO PRN (16:10)
[2019-02-04 17:12] VITALS: BP 138/95
[2019-02-04] MEDS: OLANZapine 10 MG TABLET PO SCH (20:29)
[2019-02-04] MEDS: ZOLPIDEM TARTRATE 10 MG TABLET PO PRN (20:29)
[2019-02-05 05:49] VITALS: BP 122/81
[2019-02-05 08:25] VITALS: BP 117/82
[2019-02-05] MEDS: ESCITALOPRAM OXALATE 20 MG TABLET PO SCH (08:33)
[2019-02-05] MEDS: LORazepam 2 MG TABLET PO PRN ×2 (09:08→14:56)
[2019-02-05 16:20] VITALS: BP 115/60
[2019-02-05] MEDS: HALOPERIDOL 5 MG TABLET PO PRN (16:31)
[2019-02-05] MEDS: OLANZapine 10 MG TABLET PO SCH (20:33)
[2019-02-05] MEDS: ZOLPIDEM TARTRATE 10 MG TABLET PO PRN (20:33)
[2019-02-06 03:45] VITALS: BP 119/67
[2019-02-06] MEDS: ESCITALOPRAM OXALATE 20 MG TABLET PO SCH (08:17)
[2019-02-06 09:25] VITALS: BP 110/61
[2019-02-06] MEDS: HALOPERIDOL 5 MG TABLET PO PRN (16:03)
[2019-02-06] MEDS: LORazepam 2 MG TABLET PO PRN (16:03)
[2019-02-06 16:27] VITALS: BP 119/71
[2019-02-06] MEDS: OLANZapine 10 MG TABLET PO SCH (20:47)
[2019-02-07] MEDS ORDERED: ESCI20TA PO (00:14)
[2019-02-07] MEDS ORDERED: OLAN20TA2 PO (00:15)
[2019-02-07 01:11] VITALS: BP 110/70
== END 2019-02-07 07:30 | disposition home or self-care (01) | DRG 750 ==
LOC: B3A 10:08
PROVIDERS: ADMIT Psychiatry & Neurology Child & Adolescent Psychiatry; ATTEND Psychiatry & Neurology Psychiatry
DX: F25.0 Schizoaffective disorder, bipolar type (principal); R45.851 Suicidal ideations; R00.1 Bradycardia, unspecified; F41.9 Anxiety disorder, unspecified; G47.00 Insomnia, unspecified; K59.00 Constipation, unspecified; Z81.8 Family history of other mental and behavioral disorders; Z91.5 Personal history of self-harm; F19.20 Other psychoactive substance dependence, uncomplicated; Z79.899 Other long term (current) drug therapy
CPT/HCPCS: 80307

== ENCOUNTER 2020-12-19 10:02 | Inpatient (IN) | payer MEDICAID ==
[~2020-12-19] VITALS: Ht 172.7 cm; Wt 103.0 kg
[~2020-12-19 10:02] MED LIST changes: -ESCI20TA PO; +MIRT-92 PO; -OLAN10TA3 PO; +OLAN20TA2 PO
[2020-12-19 11:42] LABS: GLUCOMETER DEV NAME(LOC) POC.BV
[2020-12-19 13:01] VITALS: BP 127/76
[2020-12-19 13:30] VITALS: BP 127/76
[2020-12-19 16:40] VITALS: BP 128/77
[2020-12-19] MEDS: MIRTAZAPINE 15 MG TABLET PO SCH (20:36)
[2020-12-19] MEDS: OLANZapine 10 MG TABLET PO SCH (20:36)
[2020-12-19] MEDS: LORazepam 2 MG TABLET PO PRN (20:36)
[2020-12-20 05:35] VITALS: BP 116/74
[2020-12-20] MEDS ORDERED: CloNIDine HCL 0.1 MG TABLET PO PRN (06:45)
[2020-12-20] MEDS ORDERED: ALBUTEROL SULFATE HFA 90 MCG/PUFF 8 GM INHALER IH PRN (06:45)
[2020-12-20] MEDS ORDERED: OMEPRAZOLE 20 MG CAPSULE PO PRN (06:45)
[2020-12-20] MEDS ORDERED: IBUPROFEN 600 MG TABLET PO PRN (06:45)
[2020-12-20] MEDS ORDERED: ONDANSETRON HCL 4 MG TABLET PO PRN (06:45)
[2020-12-20] MEDS ORDERED: ACETAMINOPHEN 325 MG TABLET PO PRN (06:45)
[2020-12-20] MEDS ORDERED: MAG HYDROX/AL HYDROX/SIMETH ES 30 ML SUSPENSION UDCUP PO PRN (06:45)
[2020-12-20] MEDS ORDERED: PETROLATUM,WHITE 28 GM JELLY TP PRN (06:45)
[2020-12-20] MEDS ORDERED: MAGNESIUM HYDROXIDE SUSPENSION 30 ML UDCUP PO PRN (06:45)
[2020-12-20] MEDS ORDERED: BACITRACIN 28 GM OINTMENT TP PRN (06:45)
[2020-12-20] MEDS ORDERED: BENZOCAINE/MENTHOL LOZENGE PO PRN (06:45)
[2020-12-20] MEDS ORDERED: LOPERAMIDE HCL 2 MG CAPSULE PO PRN (06:45)
[2020-12-20] MEDS ORDERED: DOCUSATE SODIUM 100 MG CAPSULE PO PRN (06:45)
[2020-12-20 08:59] VITALS: BP 102/55
[2020-12-20 16:38] VITALS: BP 116/69
[2020-12-20] MEDS: MIRTAZAPINE 15 MG TABLET PO SCH (20:51)
[2020-12-20] MEDS: OLANZapine 10 MG TABLET PO SCH (20:51)
[2020-12-21 06:27] VITALS: BP 118/74
[2020-12-21 08:41] VITALS: BP 110/65
[2020-12-21 16:16] VITALS: BP 109/71
[2020-12-21] MEDS: OLANZapine 10 MG TABLET PO SCH (21:08)
[2020-12-21] MEDS: MIRTAZAPINE 15 MG TABLET PO SCH (21:08)
[2020-12-22 00:22] VITALS: BP 139/87
[2020-12-22 08:06] VITALS: BP 114/66
[2020-12-22] MEDS: LORazepam 2 MG TABLET PO PRN (09:47)
[2020-12-22 16:16] VITALS: BP 124/76
[2020-12-22] MEDS: DIVALPROEX SODIUM 500 MG DR TABLET PO SCH (16:44)
[2020-12-22] MEDS: OLANZapine 10 MG TABLET PO SCH (20:31)
[2020-12-22] MEDS: MIRTAZAPINE 15 MG TABLET PO SCH (20:31)
[2020-12-23 05:22] VITALS: BP 118/72
[2020-12-23] MEDS: DIVALPROEX SODIUM 500 MG DR TABLET PO SCH ×2 (08:50→16:30)
[2020-12-23] MEDS: LORazepam 2 MG TABLET PO PRN ×2 (08:50→16:30)
[2020-12-23] MEDS: HALOPERIDOL 5 MG TABLET PO PRN (08:50)
[2020-12-23 10:56] VITALS: BP 112/66
[2020-12-23 16:15] VITALS: BP 129/80
[2020-12-23] MEDS: ZOLPIDEM TARTRATE 10 MG TABLET PO PRN (20:46)
[2020-12-23] MEDS: OLANZapine 10 MG TABLET PO SCH (20:47)
[2020-12-23] MEDS: MIRTAZAPINE 15 MG TABLET PO SCH (20:47)
[2020-12-24 05:23] VITALS: BP 116/70
[2020-12-24 08:42] VITALS: BP 120/74
[2020-12-24] MEDS: DIVALPROEX SODIUM 500 MG DR TABLET PO SCH ×2 (09:11→17:36)
[2020-12-24] MEDS: LORazepam 2 MG TABLET PO PRN ×2 (12:00→17:36)
[2020-12-24 16:17] VITALS: BP 129/78
[2020-12-24] MEDS: MIRTAZAPINE 15 MG TABLET PO SCH (21:01)
[2020-12-24] MEDS: OLANZapine 10 MG TABLET PO SCH (21:01)
[2020-12-24] MEDS: ZOLPIDEM TARTRATE 10 MG TABLET PO PRN (21:02)
[2020-12-25 03:08] VITALS: BP 122/74
[2020-12-25 08:48] VITALS: BP 159/81
[2020-12-25] MEDS: DIVALPROEX SODIUM 500 MG DR TABLET PO SCH ×2 (08:59→17:32)
[2020-12-25 16:18] VITALS: BP 160/85
[2020-12-25] MEDS: MIRTAZAPINE 15 MG TABLET PO SCH (19:17)
[2020-12-25] MEDS: OLANZapine 10 MG TABLET PO SCH (19:17)
[2020-12-26 01:04] VITALS: BP 153/100
[2020-12-26 08:00] VITALS: BP 110/72
[2020-12-26] MEDS: DIVALPROEX SODIUM 500 MG DR TABLET PO SCH ×2 (08:51→17:03)
[2020-12-26 16:23] VITALS: BP 135/80
[2020-12-26] MEDS: HALOPERIDOL 5 MG TABLET PO PRN (17:03)
[2020-12-26] MEDS: LORazepam 2 MG TABLET PO PRN (17:03)
[2020-12-26] MEDS: MIRTAZAPINE 15 MG TABLET PO SCH (20:41)
[2020-12-26] MEDS: ZOLPIDEM TARTRATE 10 MG TABLET PO PRN (20:41)
[2020-12-26] MEDS: OLANZapine 10 MG TABLET PO SCH (20:41)
[2020-12-27 05:02] VITALS: BP 138/81
[2020-12-27 08:22] VITALS: BP 161/83
[2020-12-27] MEDS: LORazepam 2 MG TABLET PO PRN (09:30)
[2020-12-27] MEDS: DIVALPROEX SODIUM 500 MG DR TABLET PO SCH ×2 (09:35→16:50)
[2020-12-27 17:50] VITALS: BP 137/91
[2020-12-27] MEDS: MIRTAZAPINE 15 MG TABLET PO SCH (20:38)
[2020-12-27] MEDS: OLANZapine 10 MG TABLET PO SCH (20:38)
[2020-12-28 04:25] VITALS: BP 123/78
[2020-12-28] MEDS: LORazepam 2 MG TABLET PO PRN (08:15)
[2020-12-28] MEDS: DIVALPROEX SODIUM 500 MG DR TABLET PO SCH ×2 (09:41→16:44)
[2020-12-28 10:32] VITALS: BP 149/97
[2020-12-28 16:23] VITALS: BP 141/90
[2020-12-28] MEDS: MIRTAZAPINE 15 MG TABLET PO SCH (19:48)
[2020-12-28] MEDS: OLANZapine 10 MG TABLET PO SCH (19:48)
[2020-12-29 01:59] VITALS: BP 150/92
[2020-12-29] MEDS ORDERED: LORazepam 1 MG TABLET ONE (07:55)
[2020-12-29] MEDS: DIVALPROEX SODIUM 500 MG DR TABLET PO SCH ×2 (09:00→16:49)
[2020-12-29] MEDS: METOPROLOL SUCCINATE 25 MG ER TABLET PO SCH (09:00)
[2020-12-29 16:09] VITALS: BP 130/91
[2020-12-29] MEDS: HALOPERIDOL 5 MG TABLET PO PRN (16:49)
[2020-12-29] MEDS: LORazepam 2 MG TABLET PO PRN (16:49)
[2020-12-29] MEDS: OLANZapine 10 MG TABLET PO SCH (20:41)
[2020-12-29] MEDS: ZOLPIDEM TARTRATE 10 MG TABLET PO PRN (20:41)
[2020-12-29] MEDS: MIRTAZAPINE 15 MG TABLET PO SCH (20:41)
[2020-12-30 03:30] VITALS: BP 130/72
[2020-12-30 08:19] VITALS: BP 97/70
[2020-12-30] MEDS: DIVALPROEX SODIUM 500 MG DR TABLET PO SCH ×2 (09:00→16:32)
[2020-12-30] MEDS: METOPROLOL SUCCINATE 25 MG ER TABLET PO SCH (09:00)
[2020-12-30 16:12] VITALS: BP 103/63
[2020-12-30] MEDS: LORazepam 2 MG TABLET PO PRN (16:32)
[2020-12-30] MEDS: OLANZapine 10 MG TABLET PO SCH (20:39)
[2020-12-30] MEDS: ZOLPIDEM TARTRATE 10 MG TABLET PO PRN (20:39)
[2020-12-30] MEDS: MIRTAZAPINE 15 MG TABLET PO SCH (20:39)
[2020-12-31 05:50] VITALS: BP 138/72
[2020-12-31] MEDS: METOPROLOL SUCCINATE 25 MG ER TABLET PO SCH (08:00)
[2020-12-31] MEDS: DIVALPROEX SODIUM 500 MG DR TABLET PO SCH ×2 (08:00→16:38)
[2020-12-31 08:31] VITALS: BP 114/84
[2020-12-31 16:16] VITALS: BP 116/73
[2020-12-31] MEDS: OLANZapine 10 MG TABLET PO SCH (19:59)
[2020-12-31] MEDS: MIRTAZAPINE 15 MG TABLET PO SCH (19:59)
[2021-01-01 06:14] VITALS: BP 121/74
[2021-01-01 08:37] VITALS: BP 126/64
[2021-01-01] MEDS: METOPROLOL SUCCINATE 25 MG ER TABLET PO SCH (09:13)
[2021-01-01] MEDS: DIVALPROEX SODIUM 500 MG DR TABLET PO SCH ×2 (09:13→16:47)
[2021-01-01 16:10] VITALS: BP 125/69
[2021-01-01] MEDS: MIRTAZAPINE 15 MG TABLET PO SCH (20:24)
[2021-01-01] MEDS: OLANZapine 10 MG TABLET PO SCH (20:24)
[2021-01-01] MEDS: ZOLPIDEM TARTRATE 10 MG TABLET PO PRN (20:25)
[2021-01-02 05:44] VITALS: BP 118/73
[2021-01-02] MEDS: METOPROLOL SUCCINATE 25 MG ER TABLET PO SCH (09:11)
[2021-01-02] MEDS: DIVALPROEX SODIUM 500 MG DR TABLET PO SCH ×2 (09:11→16:50)
[2021-01-02 09:30] VITALS: BP 106/71
[2021-01-02 16:16] VITALS: BP 106/62
[2021-01-02] MEDS: OLANZapine 10 MG TABLET PO SCH (20:51)
[2021-01-02] MEDS: MIRTAZAPINE 15 MG TABLET PO SCH (20:51)
[2021-01-02] MEDS: ZOLPIDEM TARTRATE 10 MG TABLET PO PRN (20:51)
[2021-01-03 06:57] VITALS: BP 140/89
[2021-01-03 08:27] VITALS: BP 114/62
[2021-01-03] MEDS: DIVALPROEX SODIUM 500 MG DR TABLET PO SCH ×2 (08:56→17:12)
[2021-01-03] MEDS: METOPROLOL SUCCINATE 25 MG ER TABLET PO SCH (08:56)
[2021-01-03 16:17] VITALS: BP 108/68
[2021-01-03] MEDS: MIRTAZAPINE 15 MG TABLET PO SCH (20:56)
[2021-01-03] MEDS: OLANZapine 10 MG TABLET PO SCH (20:56)
[2021-01-04 04:52] VITALS: BP 116/66
[2021-01-04] MEDS: DIVALPROEX SODIUM 500 MG DR TABLET PO SCH ×2 (08:29→16:18)
[2021-01-04] MEDS: METOPROLOL SUCCINATE 25 MG ER TABLET PO SCH (08:29)
[2021-01-04 08:50] VITALS: BP 115/69
[2021-01-04 16:11] VITALS: BP 109/60
[2021-01-04] MEDS: OLANZapine 10 MG TABLET PO SCH (20:50)
[2021-01-04] MEDS: MIRTAZAPINE 15 MG TABLET PO SCH (20:50)
[2021-01-05 06:19] VITALS: BP 105/65
[2021-01-05] MEDS: DIVALPROEX SODIUM 500 MG DR TABLET PO SCH ×2 (08:53→16:11)
[2021-01-05] MEDS: METOPROLOL SUCCINATE 25 MG ER TABLET PO SCH (08:53)
[2021-01-05 09:14] VITALS: BP 105/59
[2021-01-05 16:38] VITALS: BP 104/63
[2021-01-05] MEDS: OLANZapine 10 MG TABLET PO SCH (20:46)
[2021-01-05] MEDS: MIRTAZAPINE 15 MG TABLET PO SCH (20:46)
[2021-01-06 02:14] VITALS: BP 111/68
[2021-01-06 07:20] LABS: BASOPHILS % (AUTO) 0.4 % (0.0-2.0); EOSINOPHILS % (AUTO) 3.4 % (1.0-6.0); HEMATOCRIT 45.6 % (41-53); HEMOGLOBIN 15.2 g/dL (13.5-17.5); LYMPHOCYTES # (AUTO) 1.5 K/uL (1.0-4.8); LYMPHOCYTES % (AUTO) 27.8 % (22.0-44.0); MEAN CORPUSCULAR HEMOGLOBIN 28.6 pg (26.0-34.0); MEAN CORPUSCULAR HGB CONC 33.4 G/dL (31.0-37.0); MEAN CORPUSCULAR VOLUME 86 fL (80-100); MONOCYTES # (AUTO) 0.6 K/uL (0.1-1.0); MONOCYTES % (AUTO) 11.4 % (2.0-9.0); NEUTROPHILS # (AUTO) 3.1 K/uL (1.8-7.7); PLATELET COUNT (AUTO) 376 K/uL (150-450); RED BLOOD CELL COUNT(AUTO) 5.32 MIL/uL (4.50-5.90); RED CELL DISTRIBUTION WIDTH 14.5 % (11.5-14.5)
[2021-01-06 07:37] LABS: ALANINE AMINOTRANSFERASE 69 U/L (12-78); ALBUMIN 3.3 g/dL (3.4-5.0); ALKALINE PHOSPHATASE 88 U/L (46-116); ANION GAP 7 mmol/L (8-16); ASPARTATE AMINOTRANSFERASE 28 U/L (15-37); BILIRUBIN,TOTAL 0.2 mg/dL (0.1-1.0); CALCIUM, TOTAL 8.9 mg/dL (8.8-10.5); CARBON DIOXIDE 29 mmol/L (22-29); CHLORIDE 107 mmol/L (98-107); CREATININE 1.13 mg/dL (0.60-1.30); GLOMERULAR FILTR. RATE CALC > 60 mL/min (>60); GLUCOSE,RANDOM 87 mg/dL (70-110); POTASSIUM 4.7 mmol/L (3.5-5.1); SODIUM SERUM 143 mmol/L (136-145); TOTAL PROTEIN, SERUM 6.5 g/dL (6.4-8.2); UREA NITROGEN, BLOOD 14 mg/dL (7-18); VALPROIC ACID 3 mcg/mL (50-100)
[2021-01-06] MEDS: METOPROLOL SUCCINATE 25 MG ER TABLET PO SCH (08:54)
[2021-01-06] MEDS: DIVALPROEX SODIUM 500 MG DR TABLET PO SCH ×2 (08:54→16:13)
[2021-01-06 09:20] VITALS: BP 135/83
[2021-01-06 16:39] VITALS: BP 126/63
[2021-01-06] MEDS: MIRTAZAPINE 15 MG TABLET PO SCH (20:44)
[2021-01-06] MEDS: OLANZapine 10 MG TABLET PO SCH (20:44)
[2021-01-07 02:29] VITALS: BP 124/65
[2021-01-07] MEDS: DIVALPROEX SODIUM 500 MG DR TABLET PO SCH ×2 (08:04→16:03)
[2021-01-07] MEDS: METOPROLOL SUCCINATE 25 MG ER TABLET PO SCH (08:04)
[2021-01-07 08:31] VITALS: BP 114/62
[2021-01-07 16:21] VITALS: BP 119/70
[2021-01-07 18:18] LABS: GLUCOMETER DEV NAME(LOC) POC.BV
[2021-01-07] MEDS: MIRTAZAPINE 15 MG TABLET PO SCH (20:29)
[2021-01-07] MEDS: OLANZapine 10 MG TABLET PO SCH (20:29)
[2021-01-08 04:45] VITALS: BP 121/66
[2021-01-08] MEDS: DIVALPROEX SODIUM 500 MG DR TABLET PO SCH (09:12)
[2021-01-08] MEDS: METOPROLOL SUCCINATE 25 MG ER TABLET PO SCH (09:13)
[2021-01-08] MEDS ORDERED: DIVA-112 PO (09:15)
[2021-01-08 10:48] VITALS: BP 118/61
== END 2021-01-08 11:40 | disposition home or self-care (01) | DRG 750 ==
LOC: B3A 11:10
PROVIDERS: ADMIT Psychiatry & Neurology Psychiatry; ATTEND Psychiatry & Neurology Psychiatry
DX: F25.9 Schizoaffective disorder, unspecified (principal); R45.851 Suicidal ideations; F41.9 Anxiety disorder, unspecified; G47.00 Insomnia, unspecified; K59.00 Constipation, unspecified; Z20.822 Contact with and (suspected) exposure to COVID-19; E66.9 Obesity, unspecified; Z56.0 Unemployment, unspecified; Z68.34 Body mass index [BMI] 34.0-34.9, adult
CPT/HCPCS: 80053; 80164; 85025; 87081